=== PATIENT | male | born 1935 | race Caucasian/White ===

== ENCOUNTER 2019-02-18 23:56 | Observation (INO) | payer OTHER ==
[~2019-02-18] VITALS: Ht 165.1 cm; Wt 79.4 kg
[~2019-02-18 23:56] MED LIST: ASPIR 8181 MG PO; CALCIUM 500 MG1 EACH PO; CLOPIDOGREL75 MG PO; DOXAZOSIN MESYLA4 MG PO; FAMOTIDINE40 MG PO; FEXOFENADINE H180 MG PO; FIBER THERAPY500 MG PO; FISH OIL 1,0001 EAC2 PO; FLUTICASONE; GLUCOSAMINE &1 EAC1 PO; MULTIVITAMIN PO; OMEPRAZOLE20 M1 PO; SAW PALMETTO450 MG PO; SIMVASTATIN40 MG PO; TYLENOL PM PO; VITAMIN C500 MG PO; ZESTRIL10 MG PO; [UNRECOGNIZED DRUG - OTHER] PO; [UNRECOGNIZED DRUG - OTHER] PO
[2019-02-19] VITALS (8 sets, daily range): BP systolic 112–156; BP diastolic 59–77
--- OUTSIDE RECORDS SUMMARY | 2019-02-19 00:01 | XMS REPORT | Summary of Care ---
Author Author Evelina Beyer M.A. 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 Unavailable Unavailable GENEVIEVE Prado, BRAVO Unavailable Unavailable VIVIENNE MALCOLM MD, MONICA Sow Unavailable Unavailable Beckie MALCOLM, Tano Unavailable Unavailable MARGA MALCOLM MD, JAKE Verma Unavailable Unavailable Genevieve MALCOLM, Ph.D. 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, 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) Status: Active Chest pain (786.50, R07.9) Status: Active Pre-op examination (V72.84, Z01.818) Status: Active Dysphagia (787.20, R13.10) Status: Active Odynophagia (787.20, R13.10) Status: Active Basal cell carcinoma of right upper extremity (173.61, C44.612) Status: Active Basal cell carcinoma of chest (173.51, C44.519) Status: Active Neoplasm of uncertain behavior of skin (238.2, D48.5) Status: Active Inflamed seborrheic keratosis (702.11, L82.0) Status: Active Acute upper respiratory infection (465.9, J06.9) Status: Active Need for immunization against influenza (V04.81, Z23) Status: Active Skin neoplasm (239.2, D49.2) Status: Active Encounter for examination of vision (V72.0, Z01.00) Status: Active Visual disturbance of one eye (368.9, H53.9) Status: Active Solar lentigo (709.09, L81.4) Status: Active Seborrheic keratosis (702.19, L82.1) Status: Active Personal history of malignant neoplasm of skin (V10.83, Z85.828) Status: Active 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, 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 Melanocytic nevus of trunk (216.5, D22.5) Status: Active Coronary artery disease (414.00, I25.10) Status: Active Annual physical exam (V70.0, Z00.00) Status: Active Advance directive discussed with patient (V65.49, Z71.89) Status: Active Actinic keratoses (702.0, L57.0) Status: Active Allergic fungal sinusitis (AFS) (117.9, J30.89) Status: Active Allergic rhinitis, seasonal (477.9, J30.2) Status: Active 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, 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 Atherosclerosis of coronary artery (414.00, I25.10) Status: Active Chronic hyponatremia (276.1, E87.1) Status: Active Chronic obstructive pulmonary disease (496, J44.9) Status: Active 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, N40.1) Status: Active Gastroesophageal reflux disease (530.81, K21.9) Status: Active Hypercholesterolemia (272.0, E78.00) Status: Active Insomnia (780.52, G47.00) Status: Active 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 Quantity: 90 MONICA PALAFOX M.D. * Start : 03-Jan-2019 Active Lisinopril 10 MG Oral Tablet TAKE 1 TABLET BY MOUTH DAILY * Quantity: 90 Refills: 1 MONICA PALAFOX M.D. * Start : 19-Dec-2018 Active Doxazosin Mesylate 4 MG Oral Tablet TAKE 1 TABLET BY MOUTH EVERY DAY * Quantity: 90 Refills: 1 MONICA PALAFOX M.D. * Start : 10-Jan-2019 Active Simvastatin 40 MG Oral Tablet TAKE 1 TABLET BY MOUTH DAILY * Quantity: 90 Refills: 1 MONICA PALAFOX M.D. * Start : 20-Dec-2018 Active Famotidine 40 MG Oral Tablet TAKE 1 TABLET BY MOUTH DAILY * Quantity: 90 Refills: 1 MONICA PALAFOX M.D. * Start : 17-Jan-2019 Active Vitamin B-12 500 MCG Oral Tablet TAKE 1 TABLET TWICE DAILY * Refills: 0 Active Vitamin C 500 MG Oral Tablet TAKE 1 TABLET DAILY * Refills: 0 Active Multivitamins TABS TAKE 1 TABLET DAILY. * Refills: 0 Active Fish Oil 1200 MG Oral Capsule TAKE 1 TABLET TWICE DAILY * Refills: 0 Active Calcium 500 MG Oral Tablet Chewable TAKE 1 TABLET DAILY * Refills: 0 Active Aspirin 81 MG TABS TAKE 1 TABLET DAILY. * Refills: 0 Active Fiber CAPS TAKE 2 CAPSULE 3 TIMES DAILY ON WEDNESDAY, WEDNESDAY, AND WEDNESDAY * Refills: 0 Active Saw [place] TABS 450mg TAKE 2 TABLETS TWICE DAILY * Refills: 0 Active Fluticasone Propionate 50 MCG/ACT Nasal Suspension SHAKE LIQUID AND USE 1 SPRAY IN EACH NOSTRIL EVERY DAY * Quantity: 48 Refills: 0 MONICA PALAFOX M.D. * Start : 20-Jan-2019 Active traZODone HCl - 50 MG Oral Tablet TAKE 1 TABLET BY MOUTH EVERY NIGHT AT BEDTIME NEEDED FOR SLEEP * Quantity: 90 Refills: 1 MONICA PALAFOX M.D. * Start : 05-Oct-2018 Active Arthritis Pain 650 MG TBCR TAKE 1 TABLET IN THE MORNING * Refills: 0 Active Tamsulosin HCl - 0.4 MG Oral Capsule TAKE 1 CAPSULE DAILY AT BEDTIME * Quantity: 30 Refills: 6 MONICA PALAFOX M.D. * Start : 13-Dec-2018 Active Fluorouracil 5 % External Cream APPLY A THIN LAYER TO AFFECTED AREA(S) TWICE DAILY FOR 2-4 WEEKS. AVOID SUNLIGHT . MAY LOOK LIKE MINCED MEAT WHILE APPLYING. * Quantity: 4 Refills: 3 BRAVO HOANG M.D. * Start : 23-Dec-2018 Active 40 GM Tube Colestipol HCl - 1 GM Oral Tablet TAKE 1 TABLET DAILY. * Quantity: 30 Refills: 1 MONICA PALAFOX M.D. * Start : 10-Feb-2019 End : 11-Apr-2019 Active Senokot TABS TAKE 2 TABLETS DAILY AT BEDTIME FOR 3 DAYS THEN TAKE NEEDED * Refills: 0 Active Allergies and Adverse Reactions Name Dates Details Sulfa Drugs (Allergy) Status: Active Past Medical History Name Dates Details History of Abnormal glucose (790.29, R73.09) Status: Resolved History of Acute bronchitis due to infection (466.0, J20.8) Status: Resolved History of basal cell carcinoma (BCC) (V10.83, Z85.828) Status: Resolved History of Contusion of ribs (922.1, S20.219A) Status: Resolved History of Contusion of right hip and thigh, initial encounter (924.00, S70.01XA) Status: Resolved History of esophageal reflux (V12.79, Z87.19) Status: Resolved History of eustachian tube dysfunction (V12.49, Z86.69) Status: Resolved History of Fall from slip, trip, or stumble (E885.9, W01.0XXA) Status: Resolved History of Granuloma, foreign body, skin (709.4, L92.3) Status: Resolved History of herpes zoster (V12.09, Z86.19) Status: Resolved History of hydrocephalus (V12.49, Z86.69) Status: Resolved History of Hyponatremia (276.1, E87.1) Status: Resolved History of Injury of left elbow (959.3, S59.902A) Status: Resolved History of Need for pneumococcal vaccination (V03.82, Z23) Status: Resolved History of Osteoarthritis (V13.4) Status: Resolved History of pneumococcal vaccination (V49.89, Z92.29) Status: Resolved History of Pre-operative cardiovascular examination (V72.81, Z01.810) Status: Resolved History of Rib injury Status: Resolved History of S/P lumbar laminectomy (V45.89, Z98.890) Status: Resolved History of Skin lesion (709.9, L98.9) Status: Resolved History of Spinal stenosis (724.00, M48.00) Status: Resolved History of Splinter of finger without major open wound or infection (915.6, S60.459A) Status: Resolved History of Trigger index finger (727.03, M65.329) Status: Resolved Procedures Procedure Dates Details Abdomen 2 views [id number] Date: 10-Feb-2019 History of Laminectomy Lumbar Completed History of Transurethral Resection Of Prostate (TURP) Completed Immunization Name Dates Details Td on: 03-Mar-2010 Influenza on: 28-Jun-2012 Fluzone INJ Lot #: [id number] on: 08-Jun-2013 Zoster (Zostavax) on: 28-Jul-2014 Influenza Lot #: [id number] on: 03-Sep-2014 Prevnar 13 Intramuscular Suspension Lot #: [id number] on: 22-Apr-2015 Fluzone INJ Lot #: [id number] on: 11-Jul-2015 Fluzone INJ Lot #: [id number] on: 10-Jun-2016 Pneumococcal polysaccharide vaccine, 23 valent Lot #: [id number] on: 18-Dec-2016 Fluzone High-Dose 0.5 ML Intramuscular Suspension Prefilled Syringe Lot #: [id number] on: 20-Jul-2017 Fluzone High-Dose 0.5 ML Intramuscular Suspension Prefilled Syringe Lot #: [id number] on: 29-Aug-2018 Shingrix 50 MCG Intramuscular Suspension Reconstituted on: Sep-2018 Family History Name Dates Details Family history of Cancer Comments: Family History Status: Active Name Dates Details Family history of Diabetes (250.00, E11.9) Status: Active Social History Name Dates Details - Status: Name Dates Details Never smoker Vital Signs Date Test Result Details [id number] BP Systolic 128 mm[Hg] Status: Comments: Location: LUE; Position: Sitting BP Diastolic 68 mm[Hg] Status: Comments: Location: LUE; Position: Sitting Heart Rate 63 /min Status: 19-[id number]:26 BP Systolic 158 mm[Hg] Status: Comments: Location: LUE; Position: Sitting BP Diastolic 81 mm[Hg] Status: Comments: Location: LUE; Position: Sitting Heart Rate 67 /min Status: Height 65 in Status: Weight 175.3 lb Status: Body Mass Index Calculated 29.17 kg/m2 Status: Body Surface Area Calculated 1.87 m2 Status: Temperature 97.7 f Status: Comments: Method: Oral Respiration Rate 16 /min Status: Physical Findings 0 Status: Comments: Pain Scale :51 BP Systolic 138 mm[Hg] Status: Comments: Location: LUE; Position: Sitting BP Diastolic 68 mm[Hg] Status: Comments: Location: LUE; Position: Sitting Heart Rate 63 /min Status: Height 65 in Status: Weight 176.5 lb Status: Body Mass Index Calculated 29.37 kg/m2 Status: Body Surface Area Calculated 1.88 m2 Status: Temperature 98.2 f Status: Comments: Method: Oral Respiration Rate 16 /min Status: Physical Findings 4 Status: Comments: PHQ-9 Adult Depression Screening Physical Findings 0 Status: Comments: Alcohol Screen - How many times in the past yr have you had 5 (for M) or 4 (for F) or 4 (for all > 65yrs) or more drinks in a day? :23 BP Systolic 125 mm[Hg] Status: Comments: Location: LUE; Position: Sitting BP Diastolic 72 mm[Hg] Status: Comments: Location: LUE; Position: Sitting Heart Rate 62 /min Status: Height 65 in Status: Weight 179.375 lb Status: Body Mass Index Calculated 29.85 kg/m2 Status: Body Surface Area Calculated 1.89 m2 Status: Respiration Rate 16 /min Status: Results Date Description Value Details :45 Tobacco Use Screening Completed DONE :19 [[facility]] LIPID PANEL CHOLESTEROL, TOTAL 123 mg/dl (Normal) Range: <200 HDL CHOLESTEROL 40 mg/dl (Below low threshold) Range: >40 TRIGLYCERIDES 214 mg/dl (Above high threshold) Range: <150 LDL-CHOLESTEROL 55 {MG/DL__CAL} (Normal) Comments: Reference range: <100 Desirable range <100 mg/dL for primary prevention; <70 mg/dL for patients with CHD or diabetic patients with > or=2 CHD risk factors. LDL-C is now calculated using grisel Dunlap calculation, which is a validated novel method providing better accuracy than the Friedewald equation in the estimation of LDL-C. Pepito SS et al. CAMILLA. 2013;310(21): 0446-1872 (http:/ /education.GettingHired/faq/OWL539) CHOL/HDLC RATIO 3.1 {CALC} (Normal) Range: <5.0 NON HDL CHOLESTEROL 83 {MG/DL__CAL} (Normal) Range: <130 Comments: For patients with diabetes plus 1 major ASCVD risk factor, treating to a non-HDL-C goal of <100 mg/dL (LDL-C of <70 mg/dL) is considered a therapeutic option. 21-[id number]:19 [[facility]] CMP W/EGFR GLUCOSE 121 mg/dl (Above high threshold) Range: 65-99 Comments: Fasting reference interval For someone without known diabetes, a glucose valuebetween 100 and 125 mg/dL is consistent withprediabetes and should be confirmed with afollow-up test. UREA NITROGEN (BUN) 14 mg/dl (Normal) Range: 7-25 CREATININE 0.95 mg/dl (Normal) Range: 0.70-1.11 Comments: For patients >49 years of age, the reference limitfor Creatinine is approximately 13% higher for peopleidentified as -Prydeinig. eGFR NON- 74 {ML/MIN/1.7} (Normal) Range: > OR=60 eGFR 86 {ML/MIN/1.7} (Normal) Range: > OR=60 BUN/CREATININE RATIO NOT APPLICABLE {CALC} Range: 6-22 SODIUM 136 mmol/L (Normal) Range: 135-146 POTASSIUM 4.2 mmol/L (Normal) Range: 3.5-5.3 CHLORIDE 102 mmol/L (Normal) Range: 98-110 CARBON DIOXIDE 26 mmol/L (Normal) Range: 20-32 CALCIUM 9.6 mg/dl (Normal) Range: 8.6-10.3 PROTEIN, TOTAL 6.8 g/dl (Normal) Range: 6.1-8.1 ALBUMIN 4.2 g/dl (Normal) Range: 3.6-5.1 GLOBULIN 2.6 {G/DL__CALC} (Normal) Range: 1.9-3.7 ALBUMIN/GLOBULIN RATIO 1.6 {CALC} (Normal) Range: 1.0-2.5 BILIRUBIN, TOTAL 0.6 mg/dl (Normal) Range: 0.2-1.2 ALKALINE PHSPHATASE 51 u/l (Normal) Range: 40-115 AST 18 u/l (Normal) Range: 10-35 ALT 22 u/l (Normal) Range: 9-46 :19 [[facility]] CBC (INCLUDES DIFF/PLT) WHITE BLOOD CELL COUNT 3.7 {Thousand/u} (Below low threshold) Range: 3.8-10.8 RED BLOOD CELL COUNT 4.01 {Million/uL} (Below low threshold) Range: 4.20-5.80 HEMAGLOBIN 12.3 g/dl (Below low threshold) Range: 13.2-17.1 HEMATOCRIT 36.3 % (Below low threshold) Range: 38.5-50.0 MCV 90.5 fL (Normal) Range: 80.0-100.0 MCH 30.7 pg (Normal) Range: 27.0-33.0 MCHC 33.9 g/dl (Normal) Range: 32.0-36.0 RDW 12.4 % (Normal) Range: 11.0-15.0 PLATELET COUNT 153 {Thousand/u} (Normal) Range: 140-400 MPV 10.1 fL (Normal) Range: 7.5-12.5 ABSOLUTE NEUTROPHILS 1954 {cells/uL} (Normal) Range: 7617-3639 ABSOLUTE LYMPHOCYTES 1336 {cells/uL} (Normal) Range: 850-3900 ABSOLUTE MONOCYTES 300 {cells/uL} (Normal) Range: 200-950 ABSOLUTE EOSINOPHILS 81 {cells/uL} (Normal) Range: 15-500 ABSOLUTE BASOPHILS 30 {cells/uL} (Normal) Range: 0-200 NEUTROPHILS 52.8 % (Normal) LYMPHOCYTES 36.1 % (Normal) MONOCYTES 8.1 % (Normal) EOSINOPHILS 2.2 % (Normal) BASOPHILS 0.8 % (Normal) :19 [[facility]] TSH, 3RD GENERATION TSH 4.14 {MIU/L} (Normal) Range: 0.40-4.50 :19 [[facility]] HEMOGLOBIN A1c Comments: REPORT COMMENT:FASTING:YES HEMOGLOBIN A1c 6.1 {%_of_total} (Above high threshold) Range: <5.7 Comments: For someone without known diabetes, a hemoglobin A1c value between 5.7% and 6.4% is consistent withprediabetes and should be confirmed with a follow-up test. For someone with known diabetes, a value <7%indicates that their diabetes is well controlled. [id number] should be individualized based on duration ofdiabetes, age, comorbid conditions, and otherconsiderations. This assay result is consistent with an increased riskof diabetes. Currently, no consensus exists regarding use ofhemoglobin A1c for diagnosis of diabetes for children. [id number]:30 Abdomen 2 views [id number] Abdomen 2 views SEE NOTES Comments: EXAM: XR ABDOMEN 1 VIEWDATE: 02/10/2019 11:30 CDTINDICATION: - frequent diarrheaCOMPARISON: Pelvis radiographs September 14, 2017TECHNIQUE: AP view of the abdomen.FINDINGS: Lines and tubes: None.Lower thorax: Unremarkable where visualized.Bowel: There is gaseous distention of the small and large bowel. Moderateamount of stool is present in the cecum and ascending colon.Bones / Soft tissues: Stable.IMPRESSION:Gaseous distention of the small and large bowel. There is also moderate amountof stool in the cecum and ascending colon.--Read by: Brando Ramirez MDDictated Date/time: 02/10/19 11:47Electronically Signed by: Brando Ramirez MD 02/10/1911:48FINAL REPORT Plan of Care Name Dates Details Planned Observations Planned Goals not documented Planned Encounters Appointment; SHEN MCKOY On: 21-Feb-2019 11:00 Appointment; MONICA PALAFOX M.D. On: 24-Mar-2019 10:00 Appointment; MONICA PALAFOX M.D. On: 04-May-2019 13:15 Appointment; BRAVO HOANG M.D. On: 30-Jun-2019 13:00 Appointment; TANO MANZO M.D. On: 23-Jan-2020 13:00 Instructions Name Dates Details Instructions not documented Encounters Appointment; MONICA PALAFOX M.D. Encounter Diagnosis: Problem not documented On: 19-Apr-2017 13:30 Appointment; MONICA PALAFOX M.D. Encounter Diagnosis: Problem not documented On: 20-Jul-2017 13:15 Appointment; JAKE GRESHAM M.D. Encounter Diagnosis: Problem not documented On: 28-Jul-2017 11:15 Appointment; MONICA PALAFOX M.D. Encounter Diagnosis: Problem not documented On: 14-Sep-2017 14:30 Appointment; DAVE SOTO Encounter Diagnosis: Problem not documented On: 23-Sep-2017 14:00 Appointment; JAKE GRESHAM M.D. Encounter Diagnosis: Problem not documented On: 29-Sep-2017 14:00 Appointment; JAKE GRESHAM M.D. Encounter Diagnosis: Problem not documented On: 08-Oct-2017 11:00 Appointment; MONICA PALAFOX M.D. Encounter Diagnosis: Problem not documented On: 19-Oct-2017 14:15 Appointment; JAKE GRESHAM M.D. Encounter Diagnosis: Problem not documented On: 27-Oct-2017 10:30 Appointment; DAVE SOTO Encounter Diagnosis: Problem not documented On: 11-Nov-2017 9:00 Appointment; DAVE SOTO Encounter Diagnosis: Problem not documented On: 26-Nov-2017 10:00 Appointment; MONICA PALAFOX M.D. Encounter Diagnosis: Problem not documented On: 07-Dec-2017 15:00 Appointment; DAVE SOTO Encounter Diagnosis: Problem not documented On: 09-Dec-2017 10:00 Appointment; TANO MANZO M.D. Encounter Diagnosis: Problem not documented On: 15-Dec-2017 15:00 Appointment; DAVE SOTO Encounter Diagnosis: Problem not documented On: 20-Dec-2017 10:00 Appointment; MONICA PALAFOX M.D. Encounter Diagnosis: Problem not documented On: 04-Jan-2018 13:30 Appointment; JAKE GRESHAM M.D. Encounter Diagnosis: Problem not documented On: 07-Jan-2018 10:45 Appointment; ANJALI LOUIS NP Encounter Diagnosis: Problem not documented On: 11-Jan-2018 11:30 Appointment; TANO MANZO M.D. Encounter Diagnosis: Problem not documented On: 14-Jan-2018 9:20 Appointment; D[place]-MS, ECHO Encounter Diagnosis: Problem not documented On: 20-Jan-2018 10:00 Appointment; [place]-MS, NUCLEAR Encounter Diagnosis: Problem not documented On: 25-Jan-2018 8:15 Appointment; TANO MANZO M.D. Encounter Diagnosis: Problem not documented On: 25-Jan-2018 12:00 Appointment; ANJALI LOUIS NP Encounter Diagnosis: Problem not documented On: 03-Feb-2018 13:30 Appointment; JAKE GRESHAM M.D. Encounter Diagnosis: Problem not documented On: 18-Feb-2018 10:15 Appointment; JAKE GRESHAM M.D. Encounter Diagnosis: Problem not documented On: 23-Feb-2018 13:45 Appointment; BRAVO HOANG M.D. Encounter Diagnosis: Problem not documented On: 11-Mar-2018 13:30 Appointment; BRAVO HOANG M.D. Encounter Diagnosis: Problem not documented On: 01-Apr-2018 13:45 Appointment; BRAVO HOANG M.D. Encounter Diagnosis: Problem not documented On: 15-Apr-2018 10:15 Appointment; JAKE GRESHAM M.D. Encounter Diagnosis: Problem not documented On: 22-Apr-2018 13:00 Appointment; MONICA PALAFOX M.D. Encounter Diagnosis: Problem not documented On: 06-May-2018 13:30 Appointment; BRAVO HOANG M.D. Encounter Diagnosis: Problem not documented On: 27-May-2018 9:45 Appointment; TANO MANZO M.D. Encounter Diagnosis: Problem not documented On: 17-Jun-2018 10:20 Appointment; DAVE SOTO Encounter Diagnosis: Problem not documented On: 20-Jun-2018 9:30 Appointment; DAVE SOTO Encounter Diagnosis: Problem not documented On: 22-Jun-2018 10:00 Appointment; MONICA PALAFOX M.D. Encounter Diagnosis: Problem not documented On: 29-Jul-2018 13:30 Appointment; MONICA PALAFOX M.D. Encounter Diagnosis: Problem not documented On: 29-Jul-2018 13:30 Appointment; MONICA PALAFOX M.D. Encounter Diagnosis: Problem not documented On: 29-Aug-2018 13:30 Appointment; BRAVO HOANG M.D. Encounter Diagnosis: Problem not documented On: 09-Sep-2018 10:15 Appointment; BRAVO HOANG M.D. Encounter Diagnosis: Problem not documented On: 09-Sep-2018 10:15 Appointment; MONICA PALAFOX M.D. Encounter Diagnosis: Problem not documented On: 04-Nov-2018 13:15 Appointment; MONICA PALAFOX M.D. Encounter Diagnosis: Problem not documented On: 01-Dec-2018 9:15 Appointment; MONICA PALAFOX M.D. Encounter Diagnosis: Problem not documented On: 13-Dec-2018 13:30 Appointment; DAVE SOTO Encounter Diagnosis: Problem not documented On: 19-Dec-2018 11:00 Appointment; SHEN MCKOY Encounter Diagnosis: Problem not documented On: 19-Dec-2018 11:00 Appointment; BRAVO HOANG M.D. Encounter Diagnosis: Problem not documented On: 23-Dec-2018 13:15 Appointment; TANO MANZO M.D. Encounter Diagnosis: Problem not documented On: 24-Jan-2019 13:00 Appointment; MONICA PALAFOX M.D. Encounter Diagnosis: Problem not documented On: 01-Feb-2019 14:45 Appointment; MONICA PALAFOX M.D. Encounter Diagnosis: Problem not documented On: 10-Feb-2019 10:30
--- NOTE | 2019-02-19 00:58 | Diagnostic Imaging Report ---
Examination: Single AP view of the chest. COMPARISON: None. INDICATION: Chest pain DISCUSSION: Lines/tubes: None. Lungs: The lungs are well inflated and clear. No pneumonia or pulmonary edema. Pleura: No pleural effusion or pneumothorax. Heart and mediastinum: The heart and the mediastinum are unremarkable. Bones and soft tissues: No acute bony abnormalities. IMPRESSION: 1. No acute cardiopulmonary abnormalities. Signed by: Dr. Xiang Hart M.D. on 02/19/2019 12:55 AM
[2019-02-19 01:09] LABS: BASOPHILS % 0.7 % (0.0-1.0); BILIRUBIN,URINE NEGATIVE (NEGATIVE); CLARITY,URINE CLEAR (CLEAR); COLOR,URINE YELLOW (YELLOW); EOSINOPHILS # (AUTO) 0.1 (0.0-0.4); EOSINOPHILS % 2.2 % (0.0-6.0); HEMATOCRIT 36.9 % (38.2-49.6); HEMOGLOBIN 13.1 g/dL (14.0-18.0); KETONES,URINE NEGATIVE (NEGATIVE); LEUKOCYTE ESTERASE ,URINE NEGATIVE (NEGATIVE); LYMPHOCYTES # (AUTO) 1.9 (1.0-3.2); LYMPHOCYTES % 42.3 % (18.0-39.1); MEAN CORPUSCULAR HEMOGLOBIN 31.2 pg (28-32); MEAN CORPUSCULAR HGB CONC 35.5 g/dL (31-35); MEAN CORPUSCULAR VOLUME 87.9 fL (81-99); MONOCYTES # (AUTO) 0.5 (0.2-0.8); MONOCYTES % 10.1 % (4.4-11.3); NEUTROPHILS % 44.3 % (38.7-80.0); NITRITE,URINE NEGATIVE (NEGATIVE); PLATELET COUNT 181 x10e3/uL (140-360); PROTEIN,URINE DIPSTICK NEGATIVE (NEGATIVE); RED CELL DISTRIBUTION WIDTH 12.1 % (11.7-14.4); URINE UROBILINOGEN 0.2 mg/dL (0.2 - 1)
[2019-02-19 01:17] LABS: INR 0.85; PROTHROMBIN TIME 12.1 seconds (11.9-14.5)
[2019-02-19 01:18] LABS: EPITHELIAL CELLS,URINE FEW /LPF; PARTIAL THROMBOPLASTIN TIME 33.9 seconds (23.8-35.5); RBC,URINE 0-5 /HPF (0-5); WBC,URINE (MAN) 0-5 /HPF (0-5)
[2019-02-19 01:26] LABS: ALANINE AMINOTRANSFERASE 25 IU/L (0-55); ALBUMIN 4.2 g/dL (3.5-5.0); ALBUMIN/GLOBULIN RATIO 1.2 (0.8-2.0); ALKALINE PHOSPHATASE 56 IU/L (40-150); ANION GAP 13.8 mmol/L (8-16); BLOOD UREA NITROGEN 16 mg/dL (7-26); BUN/CREATININE RATIO 16 (6-25); CALCIUM 9.9 mg/dL (8.4-10.2); CARBON DIOXIDE 23 mmol/L (22-29); CHLORIDE 100 mmol/L (98-107); CREATINE KINASE 144 IU/L (30-200); EST GLOMERULAR FILTRATION RATE > 60 ML/MIN (60-); GLUCOSE 103 mg/dL (74-118); POTASSIUM 3.8 mmol/L (3.5-5.1); SODIUM 133 mmol/L (136-145)
[2019-02-19] MEDS ORDERED: ONDANSETRON HCL INJ 2MG/ML 2ML 2 MG/ML VIAL IV PRN (02:15)
--- OUTSIDE RECORDS SUMMARY | 2019-02-19 02:27 | XMS REPORT ---
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 Allergies, Adverse Reactions, Alerts This patient has no known allergies or adverse reactions. Medications This patient has no known medications. Results Test Description Test Time Test Comments Text Results Atomic Results Result Comments CHEST SINGLE (PORTABLE) 2019-02-19 00:54:00 [place] [address] Patient Name: Gage SAUNDERS II MR #: [id number] : 1935 Age/Sex: 83/M Req #: [id number] Adm Physician: Ordered by: KATELYN ROMANO MD Report #: [id number] Location: ER Room/Bed: Procedure: [id number] DX/CHEST SINGLE (PORTABLE) Exam Date: 02/19/19 Exam Time: 0044 REPORT STATUS: Signed Examination: Single AP view of the chest. CO MPARISON: None. INDICATION: Chest pain DISCUSSION: Lines/tubes: None. Lungs: The lungs are well inflated and clear. No pneumonia or pulmonary edema. Pleura: No pleural effusion or pneumothorax. Heart and mediastinum: The heart and the mediastinum are unremarkable. Bones and soft tissues: No acute bony abnormalities. IMPRESSION: 1. No acute cardiopulmonary abnormalities. Signed by: Dr. Wander Huang M.D. on 02/19/2019 12:55 AM Dictated By: WANDER HUANG MD Transcribed By: DARVIN on 02/19/1953 COPY TO: KATELYN ROMANO MD
[2019-02-19] MEDS ORDERED: METOPROLOL SUCC25 MG PO (03:32)
[2019-02-19] MEDS ORDERED: COLESTIPOL HCL1 G1 PO (03:32)
[2019-02-19] MEDS ORDERED: FLOMAX0.4 MG PO (03:32)
[2019-02-19] MEDS ORDERED: TRAZODONE HCL50 MG PO (03:32)
--- NOTE | 2019-02-19 04:20 | NUR ---
received patient aaox3, resp even and unlabored. denies any current chest pains. updated on plan of care. skin intact. tele #[id number] sr. r ac iv 18g saline locked. bed locked and in lowest position, call light within easy reach. will continue to monitor.
[2019-02-19] MEDS ORDERED: ASPIRIN 81 MG ENTERIC COATED PO SCH (09:00)
--- NOTE | 2019-02-19 09:43 | History and Physical ---
PRIMARY CARE PHYSICIAN: Dr. Keyon Blanco. CHIEF COMPLAINT: Atypical chest pain. HISTORY OF PRESENT ILLNESS: An 83 years old male with right-sided upper chest pain area briefly. The patient came to the emergency room for evaluation. The patient has history of coronary artery disease with previous two stents many years ago. He recently saw his blueprint reader approximately two weeks ago. The patient was told that he was well. He had multiple checkup at that time. The patient is stable now. He does not have any chest pain. PAST MEDICAL HISTORY: Hypertension, coronary artery disease with previous stents, reflux, enlarged prostate, dyslipidemia, allergic rhinitis. PAST SURGICAL HISTORY: Cholecystectomy, coronary stents, lower back surgery, hemorrhoidectomy, cystoscopy. SOCIAL HISTORY: The patient does not smoke or use alcohol. No recreational drug use. He lives with his . ALLERGIES: SULFA. HOME MEDICATIONS: List is reviewed. REVIEW OF SYSTEMS: No chest pain. No shortness of breath. No nausea or vomiting. PHYSICAL EXAMINATION: VITAL SIGNS: Temperature is 98, blood pressure 112/59, pulse rate is 58, respirations 20. GENERAL: The patient is not in acute distress. He is awake. HEENT: Normocephalic, atraumatic. Anicteric. NECK: Supple grossly. PULMONARY: Clear. CARDIOVASCULAR: Regular rate and rhythm. ABDOMEN: Soft and unremarkable. EXTREMITIES: No cyanosis or edema. NEUROLOGIC: No focal deficit. LABORATORY DATA: Sodium is 133, potassium 3.8, chloride 100, bicarb 23, BUN 16, creatinine 1.0, glucose 103. WBC is 4.5, hemoglobin is 13, hematocrit is 37, and platelets 181. Cardiac enzymes are negative. IMPRESSION: Atypical chest pain, could be musculoskeletal versus other etiology, but it also could be coronary artery disease since the patient has previous two stent placement. The patient recently just saw his blueprint reader. Plan is to add on Plavix 75 mg daily. Discussed with the patient regarding further workup including possible stress test with the blueprint reader. His blueprint reader is not a medical staff here at [facility]. The patient stated he just recently saw his blueprint reader, he wanted to make sure that he did not have a heart attack and discussed with the patient regarding cardiac enzymes, first set was negative. The patient does not want to wait for the stress test since today is Wednesday and tomorrow is a holiday and that the patient does want to go home today. I gave the patient option. He does want to see his blueprint reader next week. Because of his wishes, the patient will be discharged home today if his cardiac enzymes, three sets are negative. We will add on Plavix 75 mg daily. The patient is otherwise stable. Discussed with the patient at length and he is agreeable with the plan. Again, I discussed with the patient he want to go home after third set of enzymes negative and that he want to see his blueprint reader first thing next week. MD RUKHSANA Allen/SUJATHA /[id number]
[2019-02-19] MEDS ORDERED: CLOPIDOGREL BISULFATE 75 MG TAB PO ONE (10:00)
[2019-02-19] MEDS ORDERED: ASCORBIC ACID 500 MG TAB PO SCH (10:30)
[2019-02-19 11:01] LABS: CREATINE KINASE 135 IU/L (30-200)
--- NOTE | 2019-02-19 14:19 | NUR ---
CABRAL letter signed and copy placed in chart.
[2019-02-19] MEDS ORDERED: OMEGA 3 POLYUNSAT FATTY ACIDS 1000 MG SOFTGEL PO SCH (17:00)
[2019-02-19] MEDS ORDERED: SAW PALMETTO FRUIT 450 MG PO SCH (17:00)
--- NOTE | 2019-02-19 19:00 | NUR ---
Got report from previous nurse. call light within reach. Waiting for lab to send results for troponin so the patient can be discharged.
--- NOTE | 2019-02-19 20:20 | NUR ---
called and talked to William, lab person and he said he does not see the blood that was drawn and will look for it and will call me back.
[2019-02-19] MEDS ORDERED: SIMVASTATIN 40 MG TAB PO SCH (21:00)
--- NOTE | 2019-02-19 21:00 | NUR ---
Called and talked to William lab person and he said he is busy. I vielka another cardiac enzyme and I sent it to lab
[2019-02-19 21:13] LABS: CREATINE KINASE 147 IU/L (30-200)
[2019-02-19 21:24] LABS: CREATINE KINASE 137 IU/L (30-200)
--- NOTE | 2019-02-19 22:03 | NUR ---
Patient given discharged instructions. patient daughter collected belongings. Patient was in no pain or distress on discharged. IV and cath taken out. Patient is A&Ox3. Patient left via wheelchair.
[2019-02-20] MEDS ORDERED: PANTOPRAZOLE SOD 40 MG TABEC PO SCH (07:30)
[2019-02-20] MEDS ORDERED: NON-FORMULARY MEDICATION (Famotidine 40 MG) PO SCH (09:00)
[2019-02-20] MEDS ORDERED: COLESTIPOL HCL 1 G TAB PO SCH (09:00)
[2019-02-20] MEDS ORDERED: LISINOPRIL 10 MG TAB PO SCH (09:00)
[2019-02-20] MEDS ORDERED: VIT D3 PO SCH (09:00)
[2019-02-20] MEDS ORDERED: CLOPIDOGREL BISULFATE 75 MG TAB PO SCH (09:00)
[2019-02-20] MEDS ORDERED: DOXAZOSIN MESYLATE 2 MG TAB PO SCH (09:00)
[2019-02-20] MEDS ORDERED: CIT PO SCH (09:00)
[2019-02-20] MEDS ORDERED: METOPROLOL SUCCINATE 25 MG TAB XL PO SCH (09:00)
[2019-02-20] MEDS ORDERED: [UNRECOGNIZED DRUG - OTHER] PO SCH (09:00)
[2019-02-20] MEDS ORDERED: TRAZODONE HCL 50 MG TAB PO SCH (09:00)
[2019-02-20] MEDS ORDERED: CALCIUM CARB PO SCH (09:00)
[2019-02-20] MEDS ORDERED: ASPIRIN 81 MG CHEW TAB PO SCH (09:00)
[2019-02-20] MEDS ORDERED: TAMSULOSIN HCL 0.4 MG CAP PO SCH (09:00)
== END 2019-02-19 22:02 | disposition home or self-care (01) ==
LOC: ER 23:56 → ERHOLD 02-19 02:24 → IMCU 02-19 04:15
PROVIDERS: ADMIT Internal Medicine; ATTEND Internal Medicine
DX: R07.89 Other chest pain (principal); I25.10 Atherosclerotic heart disease of native coronary artery without angina pectoris; Z95.5 Presence of coronary angioplasty implant and graft; I10 Essential (primary) hypertension; N40.0 Benign prostatic hyperplasia without lower urinary tract symptoms; E78.5 Hyperlipidemia, unspecified; E78.00 Pure hypercholesterolemia, unspecified; Z79.82 Long term (current) use of aspirin; Z82.49 Family history of ischemic heart disease and other diseases of the circulatory system; Z88.2 Allergy status to sulfonamides
CPT/HCPCS: 36415; 71045; 80053; 81001; 82550; 82553; 83880; 84484; 85025; 85610; 85730; 93005; 93306; 99284; G0378

== ENCOUNTER 2021-04-16 00:52 | Inpatient (IN) | payer OTHER ==
[~2021-04-16] VITALS: Ht 177.8 cm; Wt 87.1 kg
[~2021-04-16 00:52] MED LIST changes: +COLESTIPOL HCL1 G1 PO; +FLOMAX0.4 MG PO; +METOPROLOL SUCC25 MG PO; +TRAZODONE HCL50 MG PO
[2021-04-16 07:10] LABS: BASOPHILS % 0.4 % (0.0-1.0); EOSINOPHILS % 0.7 % (0.0-6.0); HEMATOCRIT 28.2 % (38.2-49.6); HEMOGLOBIN 9.5 g/dL (14.0-18.0); LYMPHOCYTES # (AUTO) 0.6 (1.0-3.2); LYMPHOCYTES % 20.9 % (18.0-39.1); MEAN CORPUSCULAR HEMOGLOBIN 31.3 pg (28-32); MEAN CORPUSCULAR HGB CONC 33.7 g/dL (31-35); MEAN CORPUSCULAR VOLUME 92.8 fL (81-99); MONOCYTES # (AUTO) 0.2 (0.2-0.8); MONOCYTES % 7.7 % (4.4-11.3); NEUTROPHILS # (AUTO) 1.9 (2.1-6.9); NEUTROPHILS % 69.6 % (38.7-80.0); PLATELET COUNT 95 x10e3/uL (140-360); RED BLOOD COUNT 3.04 x10e6/uL (4.3-5.7)
[2021-04-16 07:28] LABS: ALBUMIN 3.2 g/dL (3.5-5.0); ALBUMIN/GLOBULIN RATIO 0.9 (0.8-2.0); ANION GAP 11.5 mmol/L (8-16); CALCIUM 8.7 mg/dL (8.4-10.2); CREATININE, SERUM 0.79 mg/dL (0.72-1.25); POTASSIUM 3.5 mmol/L (3.5-5.1)
[2021-04-16 15:19] VITALS: BP 129/54
[2021-04-16] MEDS ORDERED: FLONASE ALLERG9.9 ML INH (15:25)
[2021-04-16] MEDS ORDERED: SENOKOT-S TABL1 EACH PO (15:25)
[2021-04-16] MEDS ORDERED: ACETAMINOPHEN500 MG PO (15:25)
[2021-04-16] MEDS ORDERED: CLOPIDOGREL75 MG PO (15:25)
[2021-04-16 15:31] VITALS: BP 129/54
[2021-04-16] MEDS ORDERED: POTASSIUM CHLORIDE 20 MEQ TAB CR PO PRN (18:15)
[2021-04-16] MEDS ORDERED: TRAMADOL HCL 50 MG TAB PO PRN (18:15)
[2021-04-16] MEDS ORDERED: LIDOCAINE 4% PATCH TP PRN (18:15)
[2021-04-16] MEDS ORDERED: MELATONIN 5 MG TABLET PO PRN (18:15)
[2021-04-16] MEDS ORDERED: DEXTROSE 50% SYRINGE 50 ML IV PRN (18:15)
[2021-04-16] MEDS ORDERED: ALBUTEROL/IPRATROPIUM 3 ML NEB NEB PRN (18:15)
[2021-04-16] MEDS ORDERED: DIPHENHYDRAMINE HCL 25 MG CAP PO PRN (18:15)
[2021-04-16] MEDS ORDERED: ONDANSETRON HCL INJ 2MG/ML 2ML 2 MG/ML VIAL IV PRN (18:15)
[2021-04-16] MEDS ORDERED: HYDRALAZINE HCL 20 MG/ML VIAL IV PRN (18:15)
[2021-04-16] MEDS ORDERED: DOCUSATE SODIUM 100 MG CAP PO PRN (18:15)
[2021-04-16] MEDS ORDERED: SIMETHICONE 80 MG CHEW PO PRN (18:15)
[2021-04-16] MEDS: SODIUM CHLORIDE 0.9% 1000ML 1,000 ML IV SCH (18:39)
[2021-04-16] MEDS ORDERED: TRAZODONE HCL 50 MG TAB PO PRN (19:30)
[2021-04-16] MEDS: SIMVASTATIN 40 MG TAB PO SCH (22:04)
[2021-04-16] MEDS: TAMSULOSIN HCL 0.4 MG CAP PO SCH (22:04)
[2021-04-17] VITALS (7 sets, daily range): BP systolic 97–122; BP diastolic 48–57
[2021-04-17 03:39] LABS: CLARITY,URINE SL CLOUDY (CLEAR); COLOR,URINE ORANGE (YELLOW); LEUKOCYTE ESTERASE ,URINE NEGATIVE (NEGATIVE); NITRITE,URINE NEGATIVE (NEGATIVE)
[2021-04-17 03:40] LABS: KETONES,URINE 1+ (NEGATIVE); PROTEIN,URINE DIPSTICK 2+ (NEGATIVE); URINE UROBILINOGEN >=8 mg/dL (0.2 - 1)
[2021-04-17 03:43] LABS: BACTERIA,URINE FEW /HPF; EPITHELIAL CELLS,URINE FEW /LPF; WBC,URINE (MAN) 0-5 /HPF (0-5)
[2021-04-17 03:44] LABS: MUCUS,URINE MANY (RARE)
[2021-04-17 05:20] LABS: BASOPHILS % 0.3 % (0.0-1.0); EOSINOPHILS % 0.3 % (0.0-6.0); HEMATOCRIT 26.5 % (38.2-49.6); HEMOGLOBIN 8.9 g/dL (14.0-18.0); LYMPHOCYTES # (AUTO) 0.5 (1.0-3.2); LYMPHOCYTES % 14.1 % (18.0-39.1); MEAN CORPUSCULAR HEMOGLOBIN 31.1 pg (28-32); MEAN CORPUSCULAR HGB CONC 33.6 g/dL (31-35); MEAN CORPUSCULAR VOLUME 92.7 fL (81-99); MONOCYTES # (AUTO) 0.2 (0.2-0.8); MONOCYTES % 4.7 % (4.4-11.3); NEUTROPHILS # (AUTO) 2.6 (2.1-6.9); PLATELET COUNT 96 x10e3/uL (140-360); RED BLOOD COUNT 2.86 x10e6/uL (4.3-5.7); RED CELL DISTRIBUTION WIDTH 11.9 % (11.7-14.4)
[2021-04-17 05:46] LABS: ALBUMIN 2.8 g/dL (3.5-5.0); ALBUMIN/GLOBULIN RATIO 0.8 (0.8-2.0); ANION GAP 12.6 mmol/L (8-16); CALCIUM 8.3 mg/dL (8.4-10.2); CREATININE, SERUM 0.83 mg/dL (0.72-1.25); POTASSIUM 3.6 mmol/L (3.5-5.1)
[2021-04-17 06:06] LABS: CHOL/HDL RATIO 2.9 (3.9-4.7); MAGNESIUM 1.5 MG/DL (1.3-2.1); PHOSPHORUS 2.3 MG/DL (2.3-4.7)
[2021-04-17 06:27] LABS: THYROID STIMULATING HORMONE 1.414 uIU/mL (0.350-4.940)
[2021-04-17] MEDS: SODIUM CHLORIDE 0.9% 1000ML 1,000 ML IV SCH (07:30)
[2021-04-17] MEDS: ACETAMINOPHEN 325 MG TAB PO PRN ×2 (07:42→17:26)
[2021-04-17] MEDS ORDERED: LISINOPRIL 2.5 MG TAB PO SCH (09:00)
[2021-04-17] MEDS ORDERED: PANTOPRAZOLE SOD 40 MG TABEC PO SCH (09:00)
[2021-04-17] MEDS: ASPIRIN 81 MG CHEW TAB PO SCH (10:34)
[2021-04-17] MEDS: CLOPIDOGREL BISULFATE 75 MG TAB PO SCH (10:34)
[2021-04-17] MEDS: PANTOPRAZOLE SOD 40 MG TABEC PO SCH (10:34)
[2021-04-17] MEDS: ASCORBIC ACID 500 MG TAB PO SCH (10:38)
[2021-04-17] MEDS: ENOXAPARIN SOD INJ 40 MG/0.4 ML SYR SC SCH (17:26)
[2021-04-17] MEDS ORDERED: SODIUM CHLORIDE 0.9% 500ML 500 ML IV ONE (17:30)
[2021-04-17] MEDS: CEFEPIME 1 GM in SODIUM CHLORIDE 0.9% 50ML 50 ML IV SCH (17:52)
[2021-04-17] MEDS ORDERED: CEFTRIAXONE 2 GM in SODIUM CHLORIDE 0.9% 100 ML IV SCH (18:00)
[2021-04-17] MEDS: Vancomycin IV 1 GM in SODIUM CHLORIDE 0.9% 250ML 250 ML IV SCH (19:04)
[2021-04-17] MEDS: TAMSULOSIN HCL 0.4 MG CAP PO SCH (21:57)
[2021-04-17] MEDS: SIMVASTATIN 40 MG TAB PO SCH (21:57)
[2021-04-18] VITALS (8 sets, daily range): BP systolic 114–138; BP diastolic 54–69
[2021-04-18] MEDS: SODIUM CHLORIDE 0.9% 1000ML 1,000 ML IV SCH ×3 (00:49→22:12)
[2021-04-18] MEDS: CEFEPIME 1 GM in SODIUM CHLORIDE 0.9% 50ML 50 ML IV SCH ×3 (02:22→17:30)
[2021-04-18] MEDS: Vancomycin IV 1 GM in SODIUM CHLORIDE 0.9% 250ML 250 ML IV SCH ×2 (06:00→22:10)
[2021-04-18] MEDS: CLOPIDOGREL BISULFATE 75 MG TAB PO SCH (07:55)
[2021-04-18] MEDS: ASPIRIN 81 MG CHEW TAB PO SCH (07:55)
[2021-04-18] MEDS: PANTOPRAZOLE SOD 40 MG TABEC PO SCH (07:55)
[2021-04-18] MEDS: ASCORBIC ACID 500 MG TAB PO SCH (07:55)
[2021-04-18 11:52] LABS: EOSINOPHILS % 0.7 % (0.0-6.0); HEMATOCRIT 26.5 % (38.2-49.6); HEMOGLOBIN 8.8 g/dL (14.0-18.0); LYMPHOCYTES # (AUTO) 0.5 (1.0-3.2); LYMPHOCYTES % 14.8 % (18.0-39.1); MEAN CORPUSCULAR HEMOGLOBIN 31.3 pg (28-32); MEAN CORPUSCULAR HGB CONC 33.2 g/dL (31-35); MEAN CORPUSCULAR VOLUME 94.3 fL (81-99); MONOCYTES # (AUTO) 0.1 (0.2-0.8); MONOCYTES % 3.3 % (4.4-11.3); NEUTROPHILS # (AUTO) 2.5 (2.1-6.9); NEUTROPHILS % 80.5 % (38.7-80.0); PLATELET COUNT 96 x10e3/uL (140-360); RED BLOOD COUNT 2.81 x10e6/uL (4.3-5.7)
[2021-04-18 12:04] LABS: INR 1.18; PROTHROMBIN TIME 15.7 seconds (11.9-14.5)
[2021-04-18 12:05] LABS: PARTIAL THROMBOPLASTIN TIME 42.5 seconds (23.8-35.5)
[2021-04-18 12:18] LABS: FERRITIN 741.9 ng/mL (21.81-274.66)
[2021-04-18] MEDS: ENOXAPARIN SOD INJ 40 MG/0.4 ML SYR SC SCH (17:30)
[2021-04-18] MEDS: ACETAMINOPHEN 325 MG TAB PO PRN (17:46)
[2021-04-18] MEDS ORDERED: IOPAMIDOL 370 MG/ML 200 ML INFUS..BTL INJ ONE (18:50)
[2021-04-18] MEDS ORDERED: SODIUM CHLORIDE 0.9% 50ML 50 ML ONE (18:50)
[2021-04-18] MEDS: TAMSULOSIN HCL 0.4 MG CAP PO SCH (21:51)
[2021-04-18] MEDS: SIMVASTATIN 40 MG TAB PO SCH (21:51)
[2021-04-18] MEDS: Vancomycin IV 1.25 GM in SODIUM CHLORIDE 0.9% 250ML 250 ML IV SCH (21:51)
[2021-04-18] MEDS ORDERED: Vancomycin IV 1 GM VIAL ONE (21:55)
[2021-04-19] VITALS (9 sets, daily range): BP systolic 142–154; BP diastolic 72–81
[2021-04-19] MEDS: BENZONATATE 100 MG CAP PO PRN ×2 (00:25→06:14)
[2021-04-19] MEDS: CEFEPIME 1 GM in SODIUM CHLORIDE 0.9% 50ML 50 ML IV SCH ×3 (02:04→18:01)
[2021-04-19 06:25] LABS: BASOPHILS % 0.3 % (0.0-1.0); HEMATOCRIT 26.8 % (38.2-49.6); HEMOGLOBIN 8.8 g/dL (14.0-18.0); LYMPHOCYTES # (AUTO) 0.4 (1.0-3.2); LYMPHOCYTES % 12.8 % (18.0-39.1); MEAN CORPUSCULAR HEMOGLOBIN 30.9 pg (28-32); MEAN CORPUSCULAR HGB CONC 32.8 g/dL (31-35); MONOCYTES # (AUTO) 0.2 (0.2-0.8); MONOCYTES % 6.4 % (4.4-11.3); NEUTROPHILS # (AUTO) 2.5 (2.1-6.9); NEUTROPHILS % 78.9 % (38.7-80.0); PLATELET COUNT 115 x10e3/uL (140-360); RED BLOOD COUNT 2.85 x10e6/uL (4.3-5.7); RED CELL DISTRIBUTION WIDTH 12.1 % (11.7-14.4)
[2021-04-19] MEDS ORDERED: GUAIFENESIN/DEXTROMETHORPHAN LIQD 5 ML UDC PO PRN (07:00)
[2021-04-19] MEDS ORDERED: POTASSIUM CHLORIDE 20 MEQ TAB CR PO STA (08:25)
[2021-04-19] MEDS ORDERED: FUROSEMIDE INJ 10 MG/ML 4 ML VIAL IV ONE (08:30)
[2021-04-19] MEDS: CLOPIDOGREL BISULFATE 75 MG TAB PO SCH (08:58)
[2021-04-19] MEDS: PANTOPRAZOLE SOD 40 MG TABEC PO SCH (08:58)
[2021-04-19] MEDS: ASPIRIN 81 MG CHEW TAB PO SCH (08:58)
[2021-04-19] MEDS: ASCORBIC ACID 500 MG TAB PO SCH (08:58)
[2021-04-19] MEDS: DEXAMETHASONE 4 MG TAB PO SCH (08:58)
[2021-04-19] MEDS: Vancomycin IV 1.25 GM in SODIUM CHLORIDE 0.9% 250ML 250 ML IV SCH (10:11)
[2021-04-19 11:06] LABS: ANION GAP 11.6 mmol/L (8-16); CALCIUM 8.3 mg/dL (8.4-10.2); CREATININE, SERUM 0.77 mg/dL (0.72-1.25); POTASSIUM 3.6 mmol/L (3.5-5.1)
[2021-04-19] MEDS ORDERED: REMDESIVIR 200MG/NS 100ML 200 MG in SODIUM CHLORIDE 0.9% 100 ML 100 ML IV ONE (14:00)
[2021-04-19] MEDS ORDERED: SODIUM CHLORIDE 0.9% 50ML 50 ML ONE (17:53)
[2021-04-19] MEDS: ENOXAPARIN SOD INJ 40 MG/0.4 ML SYR SC SCH (21:00)
[2021-04-19] MEDS: TAMSULOSIN HCL 0.4 MG CAP PO SCH (21:00)
[2021-04-19] MEDS: SIMVASTATIN 40 MG TAB PO SCH (21:00)
[2021-04-20] VITALS (7 sets, daily range): BP systolic 134–151; BP diastolic 69–88
[2021-04-20] MEDS: CEFEPIME 1 GM in SODIUM CHLORIDE 0.9% 50ML 50 ML IV SCH ×2 (00:59→09:02)
[2021-04-20 06:29] LABS: BASOPHILS % 0.2 % (0.0-1.0); HEMATOCRIT 25.8 % (38.2-49.6); HEMOGLOBIN 8.8 g/dL (14.0-18.0); LYMPHOCYTES # (AUTO) 0.5 (1.0-3.2); MEAN CORPUSCULAR HEMOGLOBIN 30.8 pg (28-32); MEAN CORPUSCULAR HGB CONC 34.1 g/dL (31-35); MEAN CORPUSCULAR VOLUME 90.2 fL (81-99); MONOCYTES # (AUTO) 0.2 (0.2-0.8); MONOCYTES % 4.4 % (4.4-11.3); NEUTROPHILS # (AUTO) 3.7 (2.1-6.9); NEUTROPHILS % 83.9 % (38.7-80.0); PLATELET COUNT 148 x10e3/uL (140-360); RED BLOOD COUNT 2.86 x10e6/uL (4.3-5.7); RED CELL DISTRIBUTION WIDTH 11.9 % (11.7-14.4)
[2021-04-20 07:02] LABS: ANION GAP 17.7 mmol/L (8-16); CALCIUM 8.5 mg/dL (8.4-10.2); CREATININE, SERUM 0.8 mg/dL (0.72-1.25); POTASSIUM 3.7 mmol/L (3.5-5.1)
[2021-04-20] MEDS: CLOPIDOGREL BISULFATE 75 MG TAB PO SCH (09:01)
[2021-04-20] MEDS: ASCORBIC ACID 500 MG TAB PO SCH (09:01)
[2021-04-20] MEDS: ASPIRIN 81 MG CHEW TAB PO SCH (09:01)
[2021-04-20] MEDS: DEXAMETHASONE 4 MG TAB PO SCH (09:01)
[2021-04-20] MEDS: PANTOPRAZOLE SOD 40 MG TABEC PO SCH (09:01)
[2021-04-20] MEDS: ENOXAPARIN SOD INJ 40 MG/0.4 ML SYR SC SCH ×2 (09:02→20:47)
[2021-04-20] MEDS: REMDESIVIR 100MG/NS 100ML 100 MG in SODIUM CHLORIDE 0.9% 100 ML 100 ML IV SCH (14:08)
[2021-04-20] MEDS: BENZONATATE 100 MG CAP PO PRN (16:18)
[2021-04-20] MEDS: TAMSULOSIN HCL 0.4 MG CAP PO SCH (20:47)
[2021-04-20] MEDS: SIMVASTATIN 40 MG TAB PO SCH (20:47)
[2021-04-21] VITALS (9 sets, daily range): BP systolic 127–157; BP diastolic 59–86
[2021-04-21 05:47] LABS: BASOPHILS % 0.2 % (0.0-1.0); HEMATOCRIT 26.2 % (38.2-49.6); HEMOGLOBIN 8.8 g/dL (14.0-18.0); LYMPHOCYTES # (AUTO) 0.5 (1.0-3.2); LYMPHOCYTES % 11.4 % (18.0-39.1); MEAN CORPUSCULAR HEMOGLOBIN 30.8 pg (28-32); MEAN CORPUSCULAR HGB CONC 33.6 g/dL (31-35); MEAN CORPUSCULAR VOLUME 91.6 fL (81-99); MONOCYTES # (AUTO) 0.2 (0.2-0.8); MONOCYTES % 4.2 % (4.4-11.3); NEUTROPHILS # (AUTO) 3.9 (2.1-6.9); NEUTROPHILS % 83.4 % (38.7-80.0); PLATELET COUNT 169 x10e3/uL (140-360); RED BLOOD COUNT 2.86 x10e6/uL (4.3-5.7); RED CELL DISTRIBUTION WIDTH 12.1 % (11.7-14.4)
[2021-04-21 06:13] LABS: ANION GAP 13.7 mmol/L (8-16); CALCIUM 8.6 mg/dL (8.4-10.2); CREATININE, SERUM 0.76 mg/dL (0.72-1.25); POTASSIUM 3.7 mmol/L (3.5-5.1)
[2021-04-21] MEDS: PANTOPRAZOLE SOD 40 MG TABEC PO SCH (08:30)
[2021-04-21] MEDS: ASPIRIN 81 MG CHEW TAB PO SCH (08:40)
[2021-04-21] MEDS: DEXAMETHASONE 4 MG TAB PO SCH (08:40)
[2021-04-21] MEDS: ENOXAPARIN SOD INJ 40 MG/0.4 ML SYR SC SCH (08:40)
[2021-04-21] MEDS: CLOPIDOGREL BISULFATE 75 MG TAB PO SCH (08:40)
[2021-04-21] MEDS: ASCORBIC ACID 500 MG TAB PO SCH (08:40)
[2021-04-21] MEDS: REMDESIVIR 100MG/NS 100ML 100 MG in SODIUM CHLORIDE 0.9% 100 ML 100 ML IV SCH (13:01)
[2021-04-21] MEDS ORDERED: SODIUM CHLORIDE 0.9% 50ML 50 ML ONE (14:24)
[2021-04-21] MEDS ORDERED: IOPAMIDOL 370 MG/ML 200 ML INFUS..BTL INJ ONE (14:24)
[2021-04-21] MEDS ORDERED: ENOXAPARIN SOD INJ 40 MG/0.4 ML SYR SC ONE (18:00)
[2021-04-21] MEDS: SIMVASTATIN 40 MG TAB PO SCH (20:49)
[2021-04-21] MEDS: TAMSULOSIN HCL 0.4 MG CAP PO SCH (20:49)
[2021-04-22] VITALS (8 sets, daily range): BP systolic 124–145; BP diastolic 55–92
[2021-04-22] MEDS: ENOXAPARIN INJ 80 MG/0.8 ML SYR SC SCH ×2 (05:09→18:00)
[2021-04-22] MEDS: DEXAMETHASONE 4 MG TAB PO SCH (08:12)
[2021-04-22] MEDS: PANTOPRAZOLE SOD 40 MG TABEC PO SCH (08:12)
[2021-04-22] MEDS: ASCORBIC ACID 500 MG TAB PO SCH (08:12)
[2021-04-22] MEDS: ASPIRIN 81 MG CHEW TAB PO SCH (08:12)
[2021-04-22] MEDS: CLOPIDOGREL BISULFATE 75 MG TAB PO SCH (08:12)
[2021-04-22] MEDS: IRON SUCROSE 100 MG in SODIUM CHLORIDE 0.9% 100 ML 100 ML IV SCH (11:24)
[2021-04-22] MEDS: REMDESIVIR 100MG/NS 100ML 100 MG in SODIUM CHLORIDE 0.9% 100 ML 100 ML IV SCH (13:01)
[2021-04-22] MEDS: FUROSEMIDE INJ 10 MG/ML 4 ML VIAL IV SCH ×2 (14:41→21:00)
[2021-04-22] MEDS: TAMSULOSIN HCL 0.4 MG CAP PO SCH (21:14)
[2021-04-22] MEDS: SIMVASTATIN 40 MG TAB PO SCH (21:14)
[2021-04-23] VITALS (8 sets, daily range): BP systolic 118–142; BP diastolic 65–74
[2021-04-23 04:51] LABS: BASOPHILS % 0.4 % (0.0-1.0); EOSINOPHILS # (AUTO) 0.1 (0.0-0.4); EOSINOPHILS % 1.8 % (0.0-6.0); HEMATOCRIT 28.3 % (38.2-49.6); HEMOGLOBIN 9.5 g/dL (14.0-18.0); MEAN CORPUSCULAR HEMOGLOBIN 30.5 pg (28-32); MEAN CORPUSCULAR HGB CONC 33.6 g/dL (31-35); MONOCYTES # (AUTO) 0.3 (0.2-0.8); MONOCYTES % 4.9 % (4.4-11.3); NEUTROPHILS # (AUTO) 3.7 (2.1-6.9); PLATELET COUNT 207 x10e3/uL (140-360); RED BLOOD COUNT 3.11 x10e6/uL (4.3-5.7); RED CELL DISTRIBUTION WIDTH 12.2 % (11.7-14.4)
[2021-04-23 05:11] LABS: CALCIUM 8.3 mg/dL (8.4-10.2); CREATININE, SERUM 0.81 mg/dL (0.72-1.25)
[2021-04-23] MEDS: ENOXAPARIN INJ 80 MG/0.8 ML SYR SC SCH ×2 (05:13→18:21)
[2021-04-23] MEDS: PANTOPRAZOLE SOD 40 MG TABEC PO SCH (08:15)
[2021-04-23] MEDS: CLOPIDOGREL BISULFATE 75 MG TAB PO SCH (09:04)
[2021-04-23] MEDS: FUROSEMIDE INJ 10 MG/ML 4 ML VIAL IV SCH ×2 (09:04→20:59)
[2021-04-23] MEDS: ASCORBIC ACID 500 MG TAB PO SCH (09:04)
[2021-04-23] MEDS: ASPIRIN 81 MG CHEW TAB PO SCH (09:04)
[2021-04-23] MEDS: DEXAMETHASONE 4 MG TAB PO SCH (09:04)
[2021-04-23] MEDS: IRON SUCROSE 100 MG in SODIUM CHLORIDE 0.9% 100 ML 100 ML IV SCH (12:00)
[2021-04-23] MEDS: REMDESIVIR 100MG/NS 100ML 100 MG in SODIUM CHLORIDE 0.9% 100 ML 100 ML IV SCH (14:23)
[2021-04-23] MEDS: SIMVASTATIN 40 MG TAB PO SCH (20:59)
[2021-04-23] MEDS: TAMSULOSIN HCL 0.4 MG CAP PO SCH (20:59)
[2021-04-24] VITALS (8 sets, daily range): BP systolic 118–151; BP diastolic 55–75
[2021-04-24] MEDS: ENOXAPARIN INJ 80 MG/0.8 ML SYR SC SCH ×2 (05:38→17:43)
[2021-04-24] MEDS: PANTOPRAZOLE SOD 40 MG TABEC PO SCH (07:30)
[2021-04-24] MEDS: ASPIRIN 81 MG CHEW TAB PO SCH (09:15)
[2021-04-24] MEDS: DEXAMETHASONE 4 MG TAB PO SCH (09:15)
[2021-04-24] MEDS: CLOPIDOGREL BISULFATE 75 MG TAB PO SCH (09:15)
[2021-04-24] MEDS: ASCORBIC ACID 500 MG TAB PO SCH (09:15)
[2021-04-24] MEDS: IRON SUCROSE 100 MG in SODIUM CHLORIDE 0.9% 100 ML 100 ML IV SCH (11:40)
[2021-04-24] MEDS: TAMSULOSIN HCL 0.4 MG CAP PO SCH (20:00)
[2021-04-24] MEDS: SIMVASTATIN 40 MG TAB PO SCH (20:00)
[2021-04-25 01:05] VITALS: BP 141/73
[2021-04-25 05:51] VITALS: BP 141/74
[2021-04-25] MEDS ORDERED: APIXABAN 5 MG TABLET PO SCH (06:00)
[2021-04-25 06:54] LABS: ANION GAP 12.2 mmol/L (8-16); CALCIUM 8.8 mg/dL (8.4-10.2); CREATININE, SERUM 0.84 mg/dL (0.72-1.25); POTASSIUM 4.2 mmol/L (3.5-5.1)
[2021-04-25 07:58] VITALS: BP 120/63
[2021-04-25 08:16] VITALS: BP 120/63
[2021-04-25] MEDS: PANTOPRAZOLE SOD 40 MG TABEC PO SCH (08:25)
[2021-04-25] MEDS: CLOPIDOGREL BISULFATE 75 MG TAB PO SCH (08:25)
[2021-04-25] MEDS: DEXAMETHASONE 4 MG TAB PO SCH (08:25)
[2021-04-25] MEDS: ASPIRIN 81 MG CHEW TAB PO SCH (08:25)
[2021-04-25] MEDS: ASCORBIC ACID 500 MG TAB PO SCH (08:25)
[2021-04-25 11:37] VITALS: BP 146/62
[2021-04-25] MEDS ORDERED: ONDANSETRON HCL 4 MG ORAL DISINTEGRATING TAB PO PRN (12:30)
[2021-04-25] MEDS ORDERED: DEXAMETHASONE6 MG PO (12:41)
[2021-04-25] MEDS ORDERED: LASIX20 MG PO (12:42)
[2021-04-25] MEDS ORDERED: ELIQUIS5 MG PO (12:43)
[2021-04-25] MEDS ORDERED: FUROSEMIDE INJ 10 MG/ML 4 ML VIAL IV ONE (12:45)
[2021-04-25] MEDS ORDERED: FUROSEMIDE 40 MG TAB PO ONE (14:00)
== END 2021-04-25 15:24 | disposition home health service (06) | DRG 177 ==
LOC: ER 01:30 → ERHOLD 02:43 → MED/SURG 14:33 → OBSVTOIN 04-17 12:36 → MED/SURG3 04-19 13:50
PROVIDERS: ADMIT Internal Medicine; ATTEND Internal Medicine
PROC: XW033E5 Introduction of Remdesivir Anti-infective into Peripheral Vein, Percutaneous Approach, New Technology Group 5 (ICD-10-PCS; principal; 2021-04-19)
DX: U07.1 COVID-19 (principal); J12.82 Pneumonia due to coronavirus disease 2019; I26.99 Other pulmonary embolism without acute cor pulmonale; J96.01 Acute respiratory failure with hypoxia; D61.818 Other pancytopenia; G91.2 (Idiopathic) normal pressure hydrocephalus; I10 Essential (primary) hypertension; N40.0 Benign prostatic hyperplasia without lower urinary tract symptoms; E78.5 Hyperlipidemia, unspecified; D69.59 Other secondary thrombocytopenia; K74.60 Unspecified cirrhosis of liver; K21.9 Gastro-esophageal reflux disease without esophagitis; G93.89 Other specified disorders of brain
CPT/HCPCS: 36415; 70450; 70551; 71045; 71260; 74177; 76700; 80048; 80053; 80061; 80202; 81001; 82607; 82728; 82746; 83036; 83540; 83605; 83615; 83735; 83874; 84100; 84145; 84443; 84466; 85025; 85045; 85379; 85384; 85610; 85651; 85730; 86140; 87040; 87086; 93970; 97139; 99284; G0378; J0692; J0696; J1650; J1756; J1940; J3370; J7030; J7040; J7050; Q9967; U0002

== ENCOUNTER 2022-01-07 05:45 | Emergency (ER) | payer OTHER ==
[~2022-01-07] VITALS: Ht 177.8 cm; Wt 87.1 kg
[~2022-01-07 05:45] MED LIST changes: +ACETAMINOPHEN500 MG PO; +DEXAMETHASONE6 MG PO; +ELIQUIS5 MG PO; +FLONASE ALLERG9.9 ML INH; +LASIX20 MG PO; +SENOKOT-S TABL1 EACH PO
[2022-01-07] MEDS ORDERED: ACETAMINOPHEN 325 MG TAB ONE (06:14)
[2022-01-07] MEDS ORDERED: ACETAMINOPHEN 325 MG TAB PO ONE (06:15)
== END 2022-01-07 06:53 | disposition home or self-care (01) ==
LOC: ER 05:58
DX: R07.89 Other chest pain (principal); S20.212A Contusion of left front wall of thorax, initial encounter; W18.39XA Other fall on same level, initial encounter; Y93.01 Activity, walking, marching and hiking; Y92.89 Other specified places as the place of occurrence of the external cause; I10 Essential (primary) hypertension; E78.5 Hyperlipidemia, unspecified; I25.10 Atherosclerotic heart disease of native coronary artery without angina pectoris; K21.9 Gastro-esophageal reflux disease without esophagitis; G47.00 Insomnia, unspecified; Z95.5 Presence of coronary angioplasty implant and graft; R94.31 Abnormal electrocardiogram [ECG] [EKG]
CPT/HCPCS: 71046; 93005; 99283